=== PATIENT | female | born 1970 ===

== ENCOUNTER 2023-02-23 12:05 | Inpatient (IN) | payer MEDICARE, MEDICAID ==
[2023-02-23] MEDS ORDERED: OLANZapine 7.5 MG TAB PO PRN (13:11)
[2023-02-23] MEDS ORDERED: MAG HYDROX/AL HYDROX/SIMETH 30 ML CUP PO PRN (13:11)
[2023-02-23] MEDS ORDERED: OLANZapine 10 MG VIAL IM PRN (13:11)
[2023-02-23] MEDS ORDERED: MAGNESIUM HYDROXIDE 2,400 MG/30 ML CUP PO PRN (13:11)
[2023-02-23] MEDS: chlordiazePOXIDE 25 MG CAP PO SCH ×4 (18:01→21:29)
[2023-02-23] MEDS: INSULIN ASPART (NovoLOG) 100 UNIT/ML VIAL SQ SCH ×2 (18:03→20:43)
[2023-02-23 18:06] LABS: Glucose,Whole Blood 97 mg/dL (70-110)
[2023-02-23] MEDS ORDERED: LOPERAMIDE 2 MG CAP PO PRN (18:17)
[2023-02-23] MEDS ORDERED: SUMAtriptan succinate 50 MG TAB PO PRN (18:17)
[2023-02-23] MEDS: ONDANSETRON 4 MG TAB PO PRN (21:25)
[2023-02-23] MEDS: HYDROXYCHLOROQUINE SULFATE 200 MG TAB PO SCH (21:26)
[2023-02-23] MEDS: DULoxetine HCL 60 MG CAPSULE.DR PO SCH (21:26)
[2023-02-23] MEDS: ZONISAMIDE 100 MG CAP PO SCH (21:26)
[2023-02-23] MEDS: GABAPENTIN 400 MG CAP PO SCH (21:26)
[2023-02-23] MEDS: SACUBITRIL/VALSARTAN 49 MG-51 MG TABLET PO SCH (21:26)
[2023-02-23] MEDS: traMADol 50 MG TAB PO PRN (21:27)
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
[2023-02-23] MEDS: tiZANidine 4 MG TAB PO PRN (22:05)
[2023-02-24 07:59] LABS: Glucose,Whole Blood 86 mg/dL (70-110)
[2023-02-24] MEDS: INSULIN ASPART (NovoLOG) 100 UNIT/ML VIAL SQ SCH ×4 (08:41→20:07)
[2023-02-24] MEDS: chlordiazePOXIDE 25 MG CAP PO SCH ×3 (08:42→21:00)
[2023-02-24] MEDS: GABAPENTIN 400 MG CAP PO SCH ×3 (08:42→20:59)
[2023-02-24] MEDS: DAPAGLIFLOZIN PROPANEDIOL 5 MG TABLET PO SCH (08:43)
[2023-02-24] MEDS: SPIRONOLACTONE 25 MG TAB PO SCH (08:43)
[2023-02-24] MEDS: PANTOPRAZOLE 40 MG TABLET PO SCH (08:43)
[2023-02-24] MEDS: CALCIUM CARB-VIT D 500 MG-5 MCG TAB PO SCH (08:43)
[2023-02-24] MEDS: DULoxetine HCL 60 MG CAPSULE.DR PO SCH ×2 (08:44→20:59)
[2023-02-24] MEDS: MULTIVITAMINS, THERA 1 EACH TAB PO SCH (08:44)
[2023-02-24] MEDS: THIAMINE 100 MG TAB PO SCH (08:44)
[2023-02-24] MEDS: FOLIC ACID 1 MG TAB PO SCH (08:44)
[2023-02-24] MEDS: METOPROLOL SUCCINATE (ER) 50 MG TAB.ER.24H PO SCH (08:44)
[2023-02-24] MEDS: SACUBITRIL/VALSARTAN 49 MG-51 MG TABLET PO SCH ×2 (08:45→21:00)
[2023-02-24] MEDS: ZONISAMIDE 100 MG CAP PO SCH ×2 (08:45→20:59)
[2023-02-24] MEDS ORDERED: MULTIVITAMIN PO SCH (09:00)
[2023-02-24] MEDS ORDERED: [UNRECOGNIZED DRUG - OTHER] PO SCH (09:00)
[2023-02-24] MEDS ORDERED: NON FORMULARY DRUG (Vitamin B Complex [Vitamin B Complex] 1 EACH Capsule) PO SCH (09:00)
[2023-02-24] MEDS ORDERED: NON FORMULARY DRUG (Collagen/Biotin/Ascorbic Acid [Collagen 1500 Plus C Capsule] 1 EACH Ca PO SCH (09:00)
[2023-02-24] MEDS ORDERED: NON FORMULARY DRUG (Omega-3/Dha/Epa/Fish Oil [Fish Oil 1,000 Mg Softgel] 1 EACH Capsule) PO SCH (09:00)
[2023-02-24] MEDS ORDERED: NICOTINE 14MG/24HR PATCH TRANSDERM SCH (09:00)
[2023-02-24] MEDS ORDERED: NON FORMULARY DRUG (Lysine [Lysine] 500 MG Tablet) PO SCH (09:00)
[2023-02-24] MEDS: HYDROXYCHLOROQUINE SULFATE 200 MG TAB PO SCH ×2 (09:23→21:00)
[2023-02-24] MEDS: traMADol 50 MG TAB PO PRN ×2 (11:14→21:07)
[2023-02-24 12:44] LABS: Glucose,Whole Blood 73 mg/dL (70-110)
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
[2023-02-24 16:17] LABS: Chol/HDL Ratio 4.79 Ratio; LDL Cholesterol,Calculated 149.7 mg/dL (0.0-131.0)
[2023-02-24 17:43] LABS: Glucose,Whole Blood 116 mg/dL (70-110)
[2023-02-24] MEDS: ONDANSETRON 4 MG TAB PO PRN (19:19)
[2023-02-24 20:04] LABS: Glucose,Whole Blood 88 mg/dL (70-110)
[2023-02-24] MEDS ORDERED: MIRTAZAPINE 15 MG TAB PO SCH (21:00)
[2023-02-25 08:04] LABS: Glucose,Whole Blood 90 mg/dL (70-110)
[2023-02-25] MEDS: INSULIN ASPART (NovoLOG) 100 UNIT/ML VIAL SQ SCH ×2 (08:30→12:48)
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
[2023-02-25] MEDS: PANTOPRAZOLE 40 MG TABLET PO SCH (09:07)
[2023-02-25] MEDS: DAPAGLIFLOZIN PROPANEDIOL 5 MG TABLET PO SCH (09:07)
[2023-02-25] MEDS: HYDROXYCHLOROQUINE SULFATE 200 MG TAB PO SCH ×2 (09:07→21:02)
[2023-02-25] MEDS: SACUBITRIL/VALSARTAN 49 MG-51 MG TABLET PO SCH ×2 (09:07→21:02)
[2023-02-25] MEDS: chlordiazePOXIDE 25 MG CAP PO SCH (09:07)
[2023-02-25] MEDS: SPIRONOLACTONE 25 MG TAB PO SCH (09:07)
[2023-02-25] MEDS: CALCIUM CARB-VIT D 500 MG-5 MCG TAB PO SCH (09:07)
[2023-02-25] MEDS: ZONISAMIDE 100 MG CAP PO SCH ×2 (09:08→21:02)
[2023-02-25] MEDS: DULoxetine HCL 60 MG CAPSULE.DR PO SCH ×2 (09:08→21:01)
[2023-02-25] MEDS: GABAPENTIN 400 MG CAP PO SCH ×3 (09:08→21:01)
[2023-02-25] MEDS: METOPROLOL SUCCINATE (ER) 50 MG TAB.ER.24H PO SCH (09:08)
[2023-02-25] MEDS: MULTIVITAMINS, THERA 1 EACH TAB PO SCH (09:08)
[2023-02-25] MEDS: THIAMINE 100 MG TAB PO SCH (09:08)
[2023-02-25] MEDS: FOLIC ACID 1 MG TAB PO SCH (09:08)
[2023-02-25] MEDS: ONDANSETRON 4 MG TAB PO PRN (12:11)
[2023-02-25 12:40] LABS: Glucose,Whole Blood 78 mg/dL (70-110)
[2023-02-25] MEDS ORDERED: FLUCONAZOLE 150 MG TAB PO STA (13:55)
[2023-02-25] MEDS: traMADol 50 MG TAB PO PRN ×2 (14:33→21:05)
[2023-02-25] MEDS: MIRTAZAPINE 15 MG TAB PO SCH (21:01)
[2023-02-26] MEDS: HYDROXYCHLOROQUINE SULFATE 200 MG TAB PO SCH ×2 (09:19→21:13)
[2023-02-26] MEDS: SACUBITRIL/VALSARTAN 49 MG-51 MG TABLET PO SCH ×2 (09:19→21:13)
[2023-02-26] MEDS: PANTOPRAZOLE 40 MG TABLET PO SCH (09:19)
[2023-02-26] MEDS: DAPAGLIFLOZIN PROPANEDIOL 5 MG TABLET PO SCH (09:19)
[2023-02-26] MEDS: CALCIUM CARB-VIT D 500 MG-5 MCG TAB PO SCH (09:20)
[2023-02-26] MEDS: FOLIC ACID 1 MG TAB PO SCH (09:20)
[2023-02-26] MEDS: MULTIVITAMINS, THERA 1 EACH TAB PO SCH (09:20)
[2023-02-26] MEDS: METOPROLOL SUCCINATE (ER) 50 MG TAB.ER.24H PO SCH (09:20)
[2023-02-26] MEDS: ZONISAMIDE 100 MG CAP PO SCH ×2 (09:20→21:10)
[2023-02-26] MEDS: THIAMINE 100 MG TAB PO SCH (09:20)
[2023-02-26] MEDS: DULoxetine HCL 60 MG CAPSULE.DR PO SCH ×2 (09:20→21:13)
[2023-02-26] MEDS: SPIRONOLACTONE 25 MG TAB PO SCH (09:20)
[2023-02-26] MEDS: GABAPENTIN 400 MG CAP PO SCH (09:20)
[2023-02-26] MEDS: traMADol 50 MG TAB PO PRN ×3 (09:24→21:14)
[2023-02-26] MEDS: ONDANSETRON 4 MG TAB PO PRN ×2 (09:25→19:41)
--- NOTE | 2023-02-26 09:26 | P.PN ---
Subjective Progress Note Date: 02/26/23 Principal diagnosis: Depressive disorder unspecified Personality disorder unspecified Rule out borderline personality disorder Possible benzodiazepine abuse Suicide attempt by overdose Alcohol use disorder DENTIFYING DATA: Patient is a 53-year-old female, lives in a house with her father and nephew. Single, no children, on SSD Subjective: The patient says that she slept pretty well still had a lot of dreams but they were not nightmares are negative she wants to continue with mirtazapine. PMH: DM, DVT, fibromyalgia, hypertension, musculoskeletal disorder, neurologic disorder, seizure disorder, lupus MENTAL STATUS EXAM: General Appearance: Patient appears to be stated age is alert, directable, and attempts to cooperate. Patient appears to have fair hygiene and grooming. Patient mildly overweight, glasses, brown hair pulled into a bun, with a large scab on her chin, dressed in a hospital gown. Multiple bruises bilateral arms and abrasions on her chin and lip. Behavior: Patient is seated without any agitated behavior. Good eye contact Speech: Patient's speech is fluent and nonpressured. Mood/Affect: Patient reports their mood is depressed and anxious. She says that she is feeling somewhat better on the medications he is sleeping better and does not feel quite as hopeless that she did. Her affect is congruent and constricted. She says it is still hard for her to see any kind of future. She hates living with her dad because he has become so judgmental and negative. She is on disability and he is all about your worth coming from work. She has irritable bowel and often has used large amounts of toilet paper and he gets angry. She has tried really hard to find an alternative place to live and is basically told there is nothing available. She can't afford to live on her own because her so security disability is not adequate. Suicidality/Homicidality: Patient denies having any homicidal ideation intent or plan. Denies any suicidal ideations intent or plan she just feels hopeless about her life situation Perceptions: Patient denies any visual hallucinations and denies any auditory hallucinations Though content/process: There is no evidence of any delusional thought content and thought process is linear and goal-directed. argumentative. Memory and concentration: She seems abstract and able to follow conversation and stay on topic Judgment and insight: Her formal judgment is good she is of above average intelligence. INTELLECT: Above average IMPRESSIONS: Depressive disorder unspecified Personality disorder unspecified Rule out borderline personality disorder Possible benzodiazepine abuse Suicide attempt by overdose Alcohol use disorder Assessment: The patient has no hope if she returns to the same situation without a Dr. and without counseling and without some plan to get in her own place I think that she is in a lot of danger. She also needs to get off of benzos which will be hard to do that I think she needs to stay in the hospital. PLAN: I educated her on the importance of nutrition and diet in terms of managing serotonin manufacture and also on the importance of improving her ability to be mindful and let go of worries in order to back up the medication -Patient is admitted under voluntary status to MHU for stabilization of psychiatric symptoms and safety. Patient has not signed adult voluntary form and medication consent and is placed in patient's chart. Will file second cert with the court -Medications : Will start patient on Librium 25 mg by mouth 3 times a day, will taper down, for ETOH withdraw. ciwa protocll with prn ativan. Cymbalta 60 mg by mouth twice a day for mood/anxiety. Increase the Remeron to 30. She was worried that the Remeron given or black tarry stools which is much more likely to be from internal bleeding and then she also had constant dreams where she feels like she didn't sleep at all. Some of that could be withdrawal there are not many other things we could add to the Cymbalta at 120 a day. Mirtazapine is a good idea I think we need take it up to 30 mg and give it at least another days try. We're going to increase the gabapentin which only lasts about 6 hours to 4 times a day and to 600 mg each time which will help her withdraw from the benzos and help her with her aches and pains -Ativan and Haldol PRN for agitation/aggression -Patient was informed of the risks, benefits and side effects of the medication and patient verbally consented to taking the medications. Patient signed med consent form and was placed in chart. -Internal Medicine consult to perform medical evaluation and physical. -NRT - nicotine patch -SW on board for discharge planning. Encourage patient to participate in groups to work on coping skills. Will await deferral and court date. So, depressed on any medications at all withdrawal with delirium don't shaking the Cymbalta is something been on okay his gunshot twice a day is at an increased but does continue to continue He Was so He Works Sleeping Objective - Vital Signs Vital signs: Vital Signs Temp 96.4 F L 02/25/23 09:05 Pulse 97 02/26/23 06:35 Resp 20 02/25/23 09:05 BP 118/69 02/26/23 06:35 Pulse Ox FiO2
[2023-02-26] MEDS: GABAPENTIN 300 MG CAP PO SCH ×4 (10:26→23:32)
[2023-02-26] MEDS: tiZANidine 4 MG TAB PO PRN ×2 (11:22→21:13)
[2023-02-26] MEDS: MELOXICAM 7.5 MG TAB PO PRN (16:16)
[2023-02-26] MEDS: MIRTAZAPINE 15 MG TAB PO SCH (21:11)
[2023-02-27] MEDS: PANTOPRAZOLE 40 MG TABLET PO SCH (07:32)
[2023-02-27] MEDS: THIAMINE 100 MG TAB PO SCH (08:53)
[2023-02-27] MEDS: DULoxetine HCL 60 MG CAPSULE.DR PO SCH ×2 (08:53→21:16)
[2023-02-27] MEDS: FOLIC ACID 1 MG TAB PO SCH (08:53)
[2023-02-27] MEDS: SPIRONOLACTONE 25 MG TAB PO SCH (08:53)
[2023-02-27] MEDS: METOPROLOL SUCCINATE (ER) 50 MG TAB.ER.24H PO SCH (08:54)
[2023-02-27] MEDS: MULTIVITAMINS, THERA 1 EACH TAB PO SCH (08:54)
[2023-02-27] MEDS: ZONISAMIDE 100 MG CAP PO SCH ×2 (08:55→21:16)
[2023-02-27] MEDS: SACUBITRIL/VALSARTAN 49 MG-51 MG TABLET PO SCH ×2 (08:55→21:16)
[2023-02-27] MEDS: CALCIUM CARB-VIT D 500 MG-5 MCG TAB PO SCH (08:56)
[2023-02-27] MEDS: DAPAGLIFLOZIN PROPANEDIOL 5 MG TABLET PO SCH (08:56)
[2023-02-27] MEDS: HYDROXYCHLOROQUINE SULFATE 200 MG TAB PO SCH ×2 (08:59→21:16)
[2023-02-27] MEDS: GABAPENTIN 300 MG CAP PO SCH ×4 (08:59→21:25)
[2023-02-27] MEDS: ONDANSETRON 4 MG TAB PO PRN ×2 (09:05→17:42)
[2023-02-27] MEDS: traMADol 50 MG TAB PO PRN ×2 (10:07→18:51)
--- NOTE | 2023-02-27 10:37 | P.PN ---
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 Depressive disorder unspecified Personality disorder unspecified Rule out borderline personality disorder Alcohol use disorder PMH: DM, DVT, fibromyalgia, hypertension, musculoskeletal disorder, neurologic disorder, seizure disorder, lupus Patient also reports that she has some cardiac valvular problems Subjective data: The patient was seen chart was reviewed and case discussed with the nursing staff Patient reports that she is feeling somewhat better and that she was trying to scare her father after the headache and he wouldn't She says that she was also drinking and that has not to do with her behavior in general She states that she also has been asked to move from the apartment and that she's been accused of having some behavioral issues and interactions with other people in the apartment She also reports that she has some heart issues and that she is in treatment with a pediatric immunologist She is unable to give any specific details She reports that she is being on disability for last 20 years She has tried really hard to find an alternative place to live and is basically told there is nothing available. She can't afford to live on her own because her so security disability is not adequate. MENTAL STATUS EXAM: General Appearance: Patient appears to be stated age is alert, directable, and attempts to cooperate. Patient appears to have fair hygiene and grooming. Patient mildly overweight, Behavior: Patient is seated without any agitated behavior. Good eye contact Speech: Patient's speech is fluent and nonpressured. Mood/Affect: Patient reports that her mood is getting better and that she is feeling less depressed She says that she was merely trying to scare her father and that the alcohol also was driving her behavior Suicidality/Homicidality: Patient denies having any homicidal ideation intent or plan. Denies any suicidal ideations intent or plan she just feels hopeless about her life situation Perceptions: Patient denies any visual hallucinations and denies any auditory hallucinations Though content/process: There is no evidence of any delusional thought content and thought process is linear and goal-directed. argumentative. Memory and concentration: She seems abstract and able to follow conversation and stay on topic Judgment and insight: Her formal judgment is good she is of above average intelligence. INTELLECT: average IMPRESSIONS: Depressive disorder unspecified Personality disorder unspecified Rule out borderline personality disorder Alcohol use disorder Assessment: Patient is currently recommended to stay in the hospital both for detox as well as for depression and to gradually tapering off the benzos PLAN: -Patient is admitted under voluntary status to MHU for stabilization of psychiatric symptoms and safety. Patient has signed adult voluntary form and medication consent and is placed in patient's chart. Will file second cert with the court -Current Medications : Librium 25 mg by mouth 3 times a day, The recommendations for tapering . ciwa protocll with prn ativan. Cymbalta 60 mg by mouth twice a day for mood/anxiety. Remeron 30. Milligrams daily at nighttime . Gabapentin 600 mg 4 times a day for both anxiety and withdrawal management -Ativan and Haldol PRN for agitation/aggression -Patient was informed of the risks, benefits and side effects of the medication and patient verbally consented to taking the medications. Patient signed med consent form and was placed in chart. -Internal Medicine consult to perform medical evaluation and physical. -NRT - nicotine patch -SW on board for discharge planning. Encourage patient to participate in groups to work on coping skills. Will await deferral and court date. So, depressed on any medications at all withdrawal with delirium don't shaking the Cymbalta is something been on okay his gunshot twice a day is at an increased but does continue to continue He Was [facility] Objective - Vital Signs Vital signs: Vital Signs Temp 96.4 F L 02/25/23 09:05 Pulse 97 02/26/23 06:35 Resp 20 02/25/23 09:05 BP 118/69 02/26/23 06:35 Pulse Ox FiO2
[2023-02-27] MEDS: tiZANidine 4 MG TAB PO PRN ×2 (11:24→23:13)
[2023-02-27] MEDS: MELOXICAM 7.5 MG TAB PO PRN (13:01)
[2023-02-27] MEDS: DICYCLOMINE 10 MG CAP PO PRN (17:38)
[2023-02-27] MEDS: MIRTAZAPINE 15 MG TAB PO SCH (21:22)
[2023-02-28] MEDS: PANTOPRAZOLE 40 MG TABLET PO SCH (07:46)
[2023-02-28] MEDS: GABAPENTIN 300 MG CAP PO SCH ×4 (08:56→20:45)
[2023-02-28] MEDS: DAPAGLIFLOZIN PROPANEDIOL 5 MG TABLET PO SCH (08:57)
[2023-02-28] MEDS: THIAMINE 100 MG TAB PO SCH (08:57)
[2023-02-28] MEDS: SPIRONOLACTONE 25 MG TAB PO SCH (08:57)
[2023-02-28] MEDS: HYDROXYCHLOROQUINE SULFATE 200 MG TAB PO SCH ×2 (08:57→20:42)
[2023-02-28] MEDS: METOPROLOL SUCCINATE (ER) 50 MG TAB.ER.24H PO SCH (08:57)
[2023-02-28] MEDS: ZONISAMIDE 100 MG CAP PO SCH ×2 (08:57→20:44)
[2023-02-28] MEDS: SACUBITRIL/VALSARTAN 49 MG-51 MG TABLET PO SCH ×2 (08:57→20:44)
[2023-02-28] MEDS: FOLIC ACID 1 MG TAB PO SCH (08:57)
[2023-02-28] MEDS: MULTIVITAMINS, THERA 1 EACH TAB PO SCH (08:57)
[2023-02-28] MEDS: DULoxetine HCL 60 MG CAPSULE.DR PO SCH ×2 (08:57→20:42)
[2023-02-28] MEDS: CALCIUM CARB-VIT D 500 MG-5 MCG TAB PO SCH (08:57)
--- NOTE | 2023-02-28 11:34 | P.PN ---
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 Depressive disorder unspecified Personality disorder unspecified Rule out borderline personality disorder Alcohol use disorder PMH: DM, DVT, fibromyalgia, hypertension, musculoskeletal disorder, neurologic disorder, seizure disorder, lupus Patient also reports that she has some cardiac valvular problems Subjective data: The patient was seen chart was reviewed and case discussed with the nursing staff The patient reports that she is feeling better She said that she also slept better She says that she has started to look at things more realistically especially about her relationship with her father She says that he is trying his best to help her and now sees it more as a'Saint' that her enemy She says that her alcohol tends to distort things and that he has been kind enough to tolerate her drinking She states that she we'll try to make things more agreeable between her and her father and that she will try to work with some better She denies that she is having any suicidal thoughts or plans Patient also is scheduled for a deferral meeting regarding her commitment MENTAL STATUS EXAM: General Appearance: Patient appears to be stated age is alert, directable, and attempts to cooperate. Patient appears to have fair hygiene and grooming. Patient mildly overweight, Behavior: Patient is seated without any agitated behavior. Good eye contact Speech: Patient's speech is fluent and nonpressured. Mood/Affect: Euthymic She says that she was merely trying to scare her father and that the alcohol also was driving her behavior Suicidality/Homicidality: Patient denies having any homicidal ideation intent or plan. Denies any suicidal ideations intent or plan Patient denies that she is feeling hopeless about her life and that she is forward thinking now Perceptions: Patient denies any visual hallucinations and denies any auditory hallucinations Though content/process: There is no evidence of any delusional thought content and thought process is linear and goal-directed. Memory and concentration: She seems abstract and able to follow conversation and stay on topic Judgment and insight: Her formal judgment is good she is of average intelligence. IMPRESSIONS: Depressive disorder unspecified Personality disorder unspecified Rule out borderline personality disorder Alcohol use disorder Assessment: Patient is currently recommended to stay in the hospital both for detox as well as for depression and to gradually tapering off the benzos PLAN: -Patient is admitted under voluntary status to MHU for stabilization of psychiatric symptoms and safety. Patient has signed adult voluntary form and medication consent and is placed in patient's chart. Will file second cert with the court -Current Medications : Librium 20 mg by mouth 3 times a day, we'll decrease it to 10 mg 3 times a day today The recommendations for tapering . ciwa protocll with prn ativan. Cymbalta 60 mg by mouth twice a day for mood/anxiety. Remeron 30. Milligrams daily at nighttime . Gabapentin 600 mg 4 times a day for both anxiety and withdrawal management -Ativan and Haldol PRN for agitation/aggression -Patient was informed of the risks, benefits and side effects of the medication and patient verbally consented to taking the medications. Patient signed med consent form and was placed in chart. -Internal Medicine consult to perform medical evaluation and physical. -NRT - nicotine patch -SW on board for discharge planning. Encourage patient to participate in groups to work on coping skills. Will await deferral and court date. So, depressed on any medications at all withdrawal with delirium don't shaking the Cymbalta is something been on okay his gunshot twice a day is at an increased but does continue to continue He Was so He Works Sleeping [employer] [email or web address] Objective - Vital Signs Vital signs: Vital Signs Temp 97.1 F L 02/28/23 02:57 Pulse 89 02/28/23 02:57 Resp 13 02/28/23 02:57 BP 103/67 02/28/23 02:57 Pulse Ox FiO2
[2023-02-28] MEDS: tiZANidine 4 MG TAB PO PRN ×2 (12:05→23:06)
[2023-02-28] MEDS: traMADol 50 MG TAB PO PRN (14:24)
[2023-02-28] MEDS: ONDANSETRON 4 MG TAB PO PRN ×2 (14:24→20:00)
[2023-02-28] MEDS: LORazepam 1 MG TAB PO SCH ×2 (16:05→20:46)
[2023-02-28] MEDS: MELOXICAM 7.5 MG TAB PO PRN (19:04)
[2023-02-28] MEDS: MIRTAZAPINE 15 MG TAB PO SCH (20:43)
[2023-03-01 07:10] VITALS: TEMP 97.7
[2023-03-01] MEDS: PANTOPRAZOLE 40 MG TABLET PO SCH (07:13)
[2023-03-01] MEDS: GABAPENTIN 300 MG CAP PO SCH ×4 (08:15→20:45)
[2023-03-01] MEDS: LORazepam 1 MG TAB PO SCH ×3 (08:15→20:56)
[2023-03-01] MEDS: MULTIVITAMINS, THERA 1 EACH TAB PO SCH (08:36)
[2023-03-01] MEDS: THIAMINE 100 MG TAB PO SCH (08:36)
[2023-03-01] MEDS: DAPAGLIFLOZIN PROPANEDIOL 5 MG TABLET PO SCH (08:36)
[2023-03-01] MEDS: HYDROXYCHLOROQUINE SULFATE 200 MG TAB PO SCH ×2 (08:36→20:42)
[2023-03-01] MEDS: DULoxetine HCL 60 MG CAPSULE.DR PO SCH ×2 (08:36→20:42)
[2023-03-01] MEDS: CALCIUM CARB-VIT D 500 MG-5 MCG TAB PO SCH (08:36)
[2023-03-01] MEDS: SPIRONOLACTONE 25 MG TAB PO SCH (08:36)
[2023-03-01] MEDS: SACUBITRIL/VALSARTAN 49 MG-51 MG TABLET PO SCH ×2 (08:36→20:53)
[2023-03-01] MEDS: ZONISAMIDE 100 MG CAP PO SCH ×2 (08:36→20:43)
[2023-03-01] MEDS: FOLIC ACID 1 MG TAB PO SCH (08:36)
[2023-03-01] MEDS: METOPROLOL SUCCINATE (ER) 50 MG TAB.ER.24H PO SCH (08:37)
[2023-03-01] MEDS: ONDANSETRON 4 MG TAB PO PRN ×2 (08:40→15:20)
[2023-03-01 08:50] VITALS: RESP 20
[2023-03-01] MEDS: tiZANidine 4 MG TAB PO PRN ×2 (09:55→20:46)
[2023-03-01] MEDS: DICYCLOMINE 10 MG CAP PO PRN ×2 (10:43→17:46)
--- NOTE | 2023-03-01 11:12 | P.PN ---
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 Depressive disorder unspecified Personality disorder unspecified Rule out borderline personality disorder Alcohol use disorder PMH: DM, DVT, fibromyalgia, hypertension, musculoskeletal disorder, neurologic disorder, seizure disorder, lupus Patient also reports that she has some cardiac valvular problems Subjective data: The patient was seen chart was reviewed and case discussed with the nursing staff The patient reports that she is feeling better She said that she also slept better She says that she has started to look at things more realistically especially about her relationship with her father She says that he is trying his best to help her and now sees it more as a'Saint' that her enemy She says that her alcohol tends to distort things and that he has been kind enough to tolerate her drinking She states that she we'll try to make things more agreeable between her and her father and that she will try to work with some better She denies that she is having any suicidal thoughts or plans Patient also is scheduled for a deferral meeting regarding her commitment Patient asked about the discharge and since the patient's paperwork is oriented been forwarded to the senior attorney's that we will proceed with her going forward with the zoom meeting where she would have the option to sign in voluntarily MENTAL STATUS EXAM: General Appearance: Patient appears to be stated age is alert, directable, and attempts to cooperate. Patient appears to have fair hygiene and grooming. Patient mildly overweight, Behavior: Patient is seated without any agitated behavior. Good eye contact Speech: Patient's speech is fluent and nonpressured. Mood/Affect: Euthymic She says that she was merely trying to scare her father and that the alcohol also was driving her behavior Suicidality/Homicidality: Patient denies having any homicidal ideation intent or plan. Denies any suicidal ideations intent or plan Patient denies that she is feeling hopeless about her life and that she is forward thinking now Perceptions: Patient denies any visual hallucinations and denies any auditory hallucinations Though content/process: There is no evidence of any delusional thought content and thought process is linear and goal-directed. Memory and concentration: She seems abstract and able to follow conversation and stay on topic Judgment and insight: Her formal judgment is good she is of average intelligence. IMPRESSIONS: Depressive disorder unspecified Personality disorder unspecified Rule out borderline personality disorder Alcohol use disorder Assessment: Patient is currently recommended to stay in the hospital both for detox as well as for depression and to gradually tapering off the benzos PLAN: -Patient is admitted under voluntary status to MHU for stabilization of psychiatric symptoms and safety. Patient has signed adult voluntary form and medication consent and is placed in patient's chart. Will file second cert with the court Patient would be appropriate for discharge after meal all the legalities cleared with recommendation to follow up with outpatient -Current Medications : Librium 20 mg by mouth 3 times a day, we'll decrease it to 10 mg 3 times a day today The recommendations for tapering . ciwa protocll with prn ativan. Cymbalta 60 mg by mouth twice a day for mood/anxiety. Remeron 30. Milligrams daily at nighttime . Gabapentin 600 mg 4 times a day for both anxiety and withdrawal management -Ativan and Haldol PRN for agitation/aggression -Patient was informed of the risks, benefits and side effects of the medication and patient verbally consented to taking the medications. Patient signed med consent form and was placed in chart. -Internal Medicine consult to perform medical evaluation and physical. -NRT - nicotine patch -SW on board for discharge planning. Encourage patient to participate in groups to work on coping skills. Will await deferral and court date. 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 Objective - Vital Signs Vital signs: Vital Signs Temp 97.7 F 03/01/23 06:53 Pulse 102 H 03/01/23 08:41 Resp 20 03/01/23 08:41 BP 123/72 03/01/23 08:41 Pulse Ox FiO2
[2023-03-01] MEDS: traMADol 50 MG TAB PO PRN (13:51)
[2023-03-01] MEDS: MIRTAZAPINE 15 MG TAB PO SCH (20:42)
[2023-03-02] MEDS: traMADol 50 MG TAB PO PRN ×2 (04:18→13:41)
[2023-03-02] MEDS: SPIRONOLACTONE 25 MG TAB PO SCH (07:24)
[2023-03-02] MEDS: PANTOPRAZOLE 40 MG TABLET PO SCH (07:25)
[2023-03-02] MEDS: MELOXICAM 7.5 MG TAB PO PRN (08:42)
[2023-03-02] MEDS: ZONISAMIDE 100 MG CAP PO SCH (08:43)
[2023-03-02] MEDS: FOLIC ACID 1 MG TAB PO SCH (08:43)
[2023-03-02] MEDS: CALCIUM CARB-VIT D 500 MG-5 MCG TAB PO SCH (08:43)
[2023-03-02] MEDS: DAPAGLIFLOZIN PROPANEDIOL 5 MG TABLET PO SCH (08:43)
[2023-03-02] MEDS: GABAPENTIN 300 MG CAP PO SCH ×2 (08:43→13:41)
[2023-03-02] MEDS: HYDROXYCHLOROQUINE SULFATE 200 MG TAB PO SCH (08:43)
[2023-03-02] MEDS: METOPROLOL SUCCINATE (ER) 50 MG TAB.ER.24H PO SCH (08:43)
[2023-03-02] MEDS: THIAMINE 100 MG TAB PO SCH (08:43)
[2023-03-02] MEDS: LORazepam 1 MG TAB PO SCH ×2 (08:43→15:09)
[2023-03-02] MEDS: DULoxetine HCL 60 MG CAPSULE.DR PO SCH (08:43)
[2023-03-02] MEDS: SACUBITRIL/VALSARTAN 49 MG-51 MG TABLET PO SCH (08:43)
[2023-03-02] MEDS: MULTIVITAMINS, THERA 1 EACH TAB PO SCH (08:43)
[2023-03-02 08:58] VITALS: BP 146/72; PULSE 108
[2023-03-02] MEDS: tiZANidine 4 MG TAB PO PRN (09:23)
--- NOTE | 2023-03-02 11:11 | P.DS ---
Providers Date of admission: 02/23/23 17:01 Attending physician: Claudio Beltran MD Consults: 02/23/23 13:11 Consult Physician Routine Consulting Provider: Ariadna Ellis Consult Reason/Comments: H & P and medical care Do you want consulting provider notified?: Yes Primary care physician: Physician Nonstaff - Discharge Diagnosis(es) (1) Adjustment disorder with depressed mood Current Visit: Yes Status: Acute (2) Mood disorder Current Visit: Yes Status: Acute (3) Mood disorder Current Visit: Yes Status: Acute (4) Alcohol use disorder, moderate, dependence Current Visit: Yes Status: Resolved Priority: Low Hospital Course: After hospitalization patient received a routine physical examination were no acute physical issues were identified at this time that require attention Psychiatric problems and finding current interpersonal family conflicts with her father depression and anxiety and alcohol use disorder Patient responded favorably to the current management where other tablets chart discharge patient was not suicidal or homicidal her formal and operational judgment and insight are improved Patient rescinded her involuntary admission and this time was cooperative with treatment patient is willing to continue further treatment as outpatient preservative the medications some issue for her current education management she was discharged in stable condition with recommendation follow-up as directed for individual family and substance use treatment Patient Condition at Discharge: Stable Plan - Discharge Summary New Discharge Prescriptions: No Action Botox Injections 1 dose IM Q90D Vitamin B Complex 1 cap PO DAILY Gheens-3/Dha/Epa/Fish Oil [Fish Oil 1,000 mg Softgel] 1 cap PO DAILY Collagen/Biotin/Ascorbic Acid [Collagen 1500 Plus C Capsule] 1 cap PO DAILY Metoprolol Succinate [Toprol XL] 50 mg PO DAILY tiZANidine [Zanaflex] 4 mg PO TID PRN PRN Reason: Muscle Spasm Certavite Multivitamin 1 tab PO DAILY Calcium Citrate/Vitamin D3 [Citracal + D Maximum Caplet] 1 tab PO DAILY Zonisamide [Zonegran] 200 mg PO Q12HR Celecoxib [CeleBREX] 100 mg PO BID PRN PRN Reason: Pain Lysine 500 mg PO DAILY Loperamide [Imodium] 2 mg PO TID PRN PRN Reason: Diarrhea Acamprosate Calcium [Campral] 666 mg PO TID diphenhydrAMINE [Benadryl] 25 mg PO QID PRN PRN Reason: Itching ondansetron HCL [Zofran] 8 mg PO TID PRN PRN Reason: Nausea Esomeprazole Magnesium [NexIUM] 40 mg PO AC-BRKFST Hydroxychloroquine Sulfate [Plaquenil] 200 mg PO BID Atomoxetine HCl [Strattera] 40 mg PO BID traMADol HCl [Ultram] 50 mg PO QID PRN PRN Reason: Pain clonazePAM [KlonoPIN] 1 mg PO TID PRN PRN Reason: Anxiety Spironolactone [Aldactone] 25 mg PO W/KT SUMAtriptan succinate 100 mg PO BID PRN PRN Reason: Migraine Headache Empagliflozin [Jardiance] 10 mg PO DAILY DULoxetine HCL [Cymbalta] 60 mg PO BID Sacubitril/Valsartan [Entresto 49 mg-51 mg Tablet] 1 tab PO BID Gabapentin [Neurontin] 400 mg PO TID Medroxyprogesterone Acetate [Depo-Provera] 150 mg IM Q90D Discharge Medication List Acamprosate Calcium [Campral] 666 mg PO TID 02/23/23 [History] Atomoxetine HCl [Strattera] 40 mg PO BID 02/23/23 [History] Botox Injections 1 dose IM Q90D 02/23/23 [History] Calcium Citrate/Vitamin D3 [Citracal + D Maximum Caplet] 1 tab PO DAILY 02/23/23 [History] Celecoxib [CeleBREX] 100 mg PO BID PRN 02/23/23 [History] Certavite Multivitamin 1 tab PO DAILY 02/23/23 [History] Collagen/Biotin/Ascorbic Acid [Collagen 1500 Plus C Capsule] 1 cap PO DAILY 02/23/23 [History] DULoxetine HCL [Cymbalta] 60 mg PO BID 02/23/23 [History] Empagliflozin [Jardiance] 10 mg PO DAILY 02/23/23 [History] Esomeprazole Magnesium [NexIUM] 40 mg PO AC-BRKFST 02/23/23 [History] Gabapentin [Neurontin] 400 mg PO TID 02/23/23 [History] Hydroxychloroquine Sulfate [Plaquenil] 200 mg PO BID 02/23/23 [History] Loperamide [Imodium] 2 mg PO TID PRN 02/23/23 [History] Lysine 500 mg PO DAILY 02/23/23 [History] Metoprolol Succinate [Toprol XL] 50 mg PO DAILY 02/23/23 [History] Gheens-3/Dha/Epa/Fish Oil [Fish Oil 1,000 mg Softgel] 1 cap PO DAILY 02/23/23 [History] SUMAtriptan succinate 100 mg PO BID PRN 02/23/23 [History] Sacubitril/Valsartan [Entresto 49 mg-51 mg Tablet] 1 tab PO BID 02/23/23 [History] Spironolactone [Aldactone] 25 mg PO W/BRKFST 02/23/23 [History] Vitamin B Complex 1 cap PO DAILY 02/23/23 [History] Zonisamide [Zonegran] 200 mg PO Q12HR 02/23/23 [History] clonazePAM [KlonoPIN] 1 mg PO TID PRN 02/23/23 [History] diphenhydrAMINE [Benadryl] 25 mg PO QID PRN 02/23/23 [History] ondansetron HCL [Zofran] 8 mg PO TID PRN 02/23/23 [History] tiZANidine [Zanaflex] 4 mg PO TID PRN 02/23/23 [History] traMADol HCl [Ultram] 50 mg PO QID PRN 02/23/23 [History] Medroxyprogesterone Acetate [Depo-Provera] 150 mg IM Q90D 02/24/23 [History] Follow up Appointment(s)/Referral(s): Raven Carrasco [Other] - 03/07/23 11:00 am Activity/Diet/Wound Care/Special Instructions: Avoid the use of street drugs and alcohol. Take all medications as prescribed. When you are in need of refills on your medications, please contact your medical provider and/or outpatient psychiatrist/provider to have this done. Please go to your scheduled outpatient appointment for aftercare treatment. If symptoms return or become worse, call the crisis line at and/or go to the nearest emergency room for evaluation. National Suicide Hotline 541.
[2023-03-02] MEDS: ONDANSETRON 4 MG TAB PO PRN (13:41)
== END 2023-03-02 15:20 | disposition home or self-care (01) | DRG 881 ==
LOC: 3MHU 17:01
PROVIDERS: ADMIT Psychiatry & Neurology Psychiatry; ATTEND Psychiatry & Neurology Psychiatry
DX: F43.21 Adjustment disorder with depressed mood (principal); F10.20 Alcohol dependence, uncomplicated; E11.9 Type 2 diabetes mellitus without complications; E78.5 Hyperlipidemia, unspecified; F17.210 Nicotine dependence, cigarettes, uncomplicated; F41.9 Anxiety disorder, unspecified; F60.9 Personality disorder, unspecified; G40.909 Epilepsy, unspecified, not intractable, without status epilepticus; I10 Essential (primary) hypertension; M32.9 Systemic lupus erythematosus, unspecified; M79.7 Fibromyalgia; T42.4X2D Poisoning by benzodiazepines, intentional self-harm, subsequent encounter; Z63.8 Other specified problems related to primary support group; Z79.1 Long term (current) use of non-steroidal anti-inflammatories (NSAID); Z79.84 Long term (current) use of oral hypoglycemic drugs; Z79.899 Other long term (current) drug therapy; Z91.51 Personal history of suicidal behavior
CPT/HCPCS: 80061; 83036